=== PATIENT | male | born 1965 | race Caucasian/White ===

== ENCOUNTER 2023-01-04 14:56 | Emergency (ER) | payer OTHER ==
[~2023-01-04] VITALS: Ht 170.1 cm; Wt 76.2 kg
[2023-01-04] MEDS ORDERED: OMEPRAZOLE40 MG PO (15:09)
[2023-01-04] MEDS ORDERED: VENLAFAXINE HYD75 M3 PO (15:09)
[2023-01-04] MEDS ORDERED: ATORVASTATIN CA10 M1 PO (15:09)
[2023-01-04] MEDS ORDERED: FAMOTIDINE40 MG PO (15:10)
[2023-01-04 15:25] LABS: BASO % 0.6 % (0.0-1.0); LYMPH # 0.9 10*3/uL (1.3-4.4); MEAN CELL VOLUME 90.5 fl (80.0-94.0); MEAN CORPUSCULAR HGB 31.3 pg (27.0-31.0); MEAN CORPUSCULAR HGB CONC 34.5 g/dl (33.0-37.0); MEAN PLATELET VOLUME 8.8 fl (9.6-12.3); MONO # 0.7 10*3/uL (0.1-1.0); MONO % 13.4 % (3.0-9.0); NEUT # 3.6 10*3/uL (2.3-7.9); NEUT % 68.8 % (47.0-73.0); PLATELET COUNT AUTOMATED 166 10*3/uL (130-400); RED BLOOD COUNT 4.86 10*6/uL (4.50-5.90); RED CELL DISTRI WIDTH 13.5 % (0-14.5); WHITE BLOOD COUNT 5.3 10*3/uL (4.8-10.8)
[2023-01-04 15:49] LABS: ALKALINE PHOSPHATASE 61 U/L (46-116); BUN 10 mg/dl (9-23); CHLORIDE 100 mmol/L (98-107); SGPT/ALT 20 U/L (10-49); TOTAL PROTEIN 7.3 gm/dL (6.0-8.0)
== END 2023-01-04 18:43 | disposition home or self-care (01) ==
LOC: ED 14:56
PROVIDERS: Internal Medicine
DX: B34.9 Viral infection, unspecified (principal); M25.522 Pain in left elbow; Z91.040 Latex allergy status; Z87.891 Personal history of nicotine dependence

== ENCOUNTER → 2025-02-13 | Outpatient (CLI) | payer OTHER ==
[~2025-02-13] MED LIST: ATORVASTATIN CA10 M1 PO; FAMOTIDINE40 MG PO; OMEPRAZOLE40 MG PO; VENLAFAXINE HYD75 M3 PO
== END | disposition home or self-care (01) ==
LOC: CT 15:34
PROVIDERS: ATTEND Internal Medicine
DX: J32.8 Other chronic sinusitis (principal); J34.89 Other specified disorders of nose and nasal sinuses